=== PATIENT | female | born 1995 | race Caucasian/White ===

== ENCOUNTER 2018-02-27 19:20 | Emergency (ER) | payer OTHER ==
[2018-02-27] MEDS: KETOROLAC 60 MG INJ IM (22:28)
== END 2018-02-27 22:50 | disposition home or self-care (01) ==
LOC: FTE 19:20
DX: M54.2 Cervicalgia (principal)
CPT/HCPCS: 81025; 96372; 99284-25

== ENCOUNTER → 2018-03-03 | Emergency (ER) | payer OTHER ==
[2018-03-03] MEDS: HYDROCODONE/APAP (5/325) TAB PO (13:01)
== END | disposition home or self-care (01) ==
LOC: FTE 12:00
DX: M54.2 Cervicalgia (principal)
CPT/HCPCS: 72040; 99283-25